=== PATIENT | male | born 1965 | race African-American/Black ===

== ENCOUNTER 2024-09-07 20:51 | Emergency (ER) | payer OTHER ==
[2024-09-07 20:56] VITALS: BP 156/92; TEMP 98.6; BMI 26.6
[2024-09-07 21:08] VITALS: RESP 25
[2024-09-07 21:26] LABS: ABSOLUTE IMMATURE GRANULOCYTES 0.01 x10^3/uL (0.0-0.031); BASOPHILS # 0.03 x10^3/uL (0.01-0.08); EOSINOPHILS # 0.08 x10^3/uL (0.04-0.54); HEMATOCRIT 42.4 % (40.1-51.0); HEMOGLOBIN 14.4 g/dL (13.7-17.5); MEAN CELL VOLUME 91.4 fl (79.0-92.2); MONOCYTE # 0.42 x10^3/uL (0.30-0.82); MONOCYTE % 5.1 % (5.3-12.2); PLATELET COUNT 224 x10^3/uL (163-337); RDW 12.4 % (12.2-16.1)
[2024-09-07 21:34] LABS: INR 1.01 (0.83-1.09); PROTHROMBIN TIME (PATIENT) 11.1 SEC (9.7-13.0)
[2024-09-07 21:37] LABS: ACTIVATED PTT 31.7 SECONDS (25.2-36.5)
[2024-09-07 21:48] VITALS: PULSE 94
[2024-09-07 21:54] LABS: POTASSIUM 3.6 mmol/L (3.5-5.1)
[2024-09-07 21:56] LABS: ALBUMIN 3.8 g/dl (3.4-5.0); BLOOD UREA NITROGEN 18.6 mg/dL (7-18); CALCIUM 9.4 mg/dL (8.5-10.1)
[2024-09-07 21:57] LABS: MAGNESIUM 2.1 mg/dL (1.8-2.4)
[2024-09-07 22:00] LABS: CREATININE 1.2 mg/dL (0.55-1.3)
[2024-09-07 22:02] LABS: BILIRUBIN,TOTAL 0.4 mg/dL (0.2-1); TOT PROT 6.9 g/dl (6.4-8.2)
[2024-09-07] MEDS: SODIUM CHLORIDE 0.9% 500 ML INFUS.BAG IV ONE (22:25)
== END 2024-09-07 23:32 | disposition home or self-care (01) ==
LOC: JER 20:51
DX: R07.2 Precordial pain (principal); R00.2 Palpitations; R42 Dizziness and giddiness; R53.81 Other malaise; R51.9 Headache, unspecified
CPT/HCPCS: 0241U-QW; 36415; 71045-TC-FY; 80053; 82550; 82553; 82962; 83735; 83880; 84484; 85025; 85610; 85730; 93005; 93010; 99285-25